=== PATIENT | male | born 1985 | race Caucasian/White ===

== ENCOUNTER 2016-10-20 01:03 | Observation (INO) | payer OTHER, BC ==
[~2016-10-20] VITALS: Ht 190.5 cm; Wt 118.9 kg
[2016-10-20] MEDS ORDERED: MOTRIN800 MG PO (02:58)
[2016-10-20] MEDS ORDERED: FLEXERIL5 MG PO (02:58)
[2016-10-20 08:45] LABS: TROP-I INTERPRETATION NEGATIVE; TROPONIN-I < 0.01 ng/mL (0.0-0.30)
[2016-10-20 08:50] LABS: ANION GAP 12 MEQ/L (2-14); CHLORIDE 104 mEq/L (99-109); GLUCOSE 97 mg/dL (70-99); POTASSIUM 4.2 mEq/L (3.7-5.4); SODIUM 139 mEq/L (136-147)
[2016-10-20 08:55] LABS: CREATINE KINASE 215 IU/L (1-294); GFR ESTIMATE (CALCULATED) > 59 mL/min/; TOTAL CK 215 IU/L (1-294); UREA NITROGEN (BUN) 11 mg/dL (9-23)
[2016-10-20 09:00] LABS: CK-MB 0.5 ng/mL (0.0-4.9)
[2016-10-20 11:34] VITALS: BP 131/85
[2016-10-20 15:24] LABS: TROP-I INTERPRETATION NEGATIVE; TROPONIN-I < 0.01 ng/mL (0.0-0.30)
[2016-10-20 15:48] VITALS: BP 129/85
[2016-10-20 20:00] VITALS: BP 123/59
[2016-10-20 20:45] LABS: TROP-I INTERPRETATION NEGATIVE; TROPONIN-I < 0.01 ng/mL (0.0-0.30)
[2016-10-20 23:52] VITALS: BP 132/64
[2016-10-21 03:45] VITALS: BP 120/62
[2016-10-21 07:58] VITALS: BP 128/67
[2016-10-21 11:08] VITALS: BP 132/82
== END 2016-10-21 11:44 | disposition home or self-care (01) ==
LOC: EME → EDBD 01:03 → 3EAST 07:50 → EDOF 07:50 → 3EAST 11:19
PROVIDERS: Internal Medicine
DX: S13.4XXA Sprain of ligaments of cervical spine, initial encounter (principal); V89.2XXA Person injured in unspecified motor-vehicle accident, traffic, initial encounter; Y92.411 Interstate highway as the place of occurrence of the external cause
CPT/HCPCS: 70450; 72125; 72141; 80048; 82550; 82553; 84484; 99281; 99284; G0378; J1885